=== PATIENT | female | born 1975 | race Two or more races ===

== ENCOUNTER → 2017-02-25 | Outpatient (CLI) | payer OTHER ==
[~2017-02-25] MED LIST: ANTIVERT PO; ATIVAN0.5 MG PO; FLEXERIL10 M1 PO; NAPROSYN250 M1 PO
--- NOTE | ~2017-02-25 | US98 ---
[facility] A Service of [facility] & [facility] RADIOLOGY TEXT RESULTS PATIENT: JAZMÍN ORDAZ LOCATION: [facility] : [birth year] UNIT #: [id number] AGE: [address]: Gricelda Ordaz MD SEX: F ORDER DR: [id number] [facility] [address] [place], [place] [address] [id number] O MR#: [id number] Acc #: [id number] NAME: JAZMÍN ORDAZ : 1975 SEX: F STUDY DATE/TIME: 02/25/2017 8:20 UNIT: [facility] ROOM: STUDY DESCRIPTION: US Pelvic Non-OB Complete Attending Physician: Gricelda Ordaz M.D. Referring Physician: Gricelda Ordaz M.D. Ordering Physician: Gricelda Ordaz M.D. Primary Care Physician: Gricelda Ordaz M.D. MEDICAL IMAGING REPORT This report is preliminary unless electronic signature is present EXAM Transabdominal and transvaginal pelvic ultrasound, 02/25/2017 HISTORY Suprapubic pelvic pain and left lower quadrant pain and left side pelvic pain for 2 months. History of fibroid uterus. Pain worse post menses. FINDINGS Transabdominal and transvaginal pelvic ultrasound was performed. Endovaginal ultrasound was performed for attempted better visualization of the adnexal structures. The bladder is normal in appearance. Uterus measures 10.0 cm craniocaudal x 5.1 cm AP x 5.6 cm transverse. In endometrial stripe measures 6.0 mm. The uterus is fairly heterogeneous in echotexture but no discrete fibroids are identified. The right ovary measured 1.8 cm x 3.0 cm x 2.4 cm while the left ovary measured 1.8 cm x 2.9 cm x 1.3 cm. Small follicles were seen on both ovaries. Color flow Doppler show normal blood flow to both ovaries. There is no adnexal mass. Trace free fluid was seen in the pelvis. IMPRESSION Uterus is mildly heterogeneous in echotexture but no discrete fibroids were identified. Otherwise negative transabdominal and transvaginal pelvic ultrasound. Dictated by... Roger Paulino M.D. THIS IS AN ELECTRONICALLY VERIFIED REPORT Roger Paulino M.D. at 02/26/2017 10:30 AM DEVONTE/yasemin TD: 02/25/2017 12:32 JOB #: [id number] [facility]. [facility] A Service of [facility] RADIOLOGY TEXT RESULTS PATIENT: JAZMÍN ORDAZ Naeem LOCATION: [facility] : [birth year] UNIT #: [id number] AGE: [address]: Gricelda Ordaz MD SEX: F ORDER DR: MEDICAL IMAGING REPORT Page 1 of 1 COPY
== END | disposition home or self-care (01) ==
LOC: CWCC 07:54
DX: D25.9 Leiomyoma of uterus, unspecified (principal); R10.2 Pelvic and perineal pain
CPT/HCPCS: 76830; 76856

== ENCOUNTER → 2017-06-10 | Outpatient (CLI) | payer OTHER ==
--- NOTE | ~2017-06-10 | HM ---
Unit #: [id number] #: [id number] Patient: JAZÍMN ORDAZ [id number] [address] [address] [id number] O MR#: [id number] NAME: JAZMÍN ORDAZ. : 1975 SEX: F STUDY DATE/TIME: 06/10/2017 UNIT: [facility] ROOM: STUDY DESCRIPTION: Attending Physician: Gricelda Ordaz M.D. Referring Physician: Gricelda Ordaz M.D. Primary Care Physician: Gricelda Ordaz M.D. CARDIOLOGY REPORT EXAM Holter monitor. DATE APPLIED 06/10/2017 DATE SCANNED 06/12/[address] Gricelda Ordaz READ BY Dr. Richard Winston INDICATION Palpitations. SUMMARY The patient was monitored for 24 hours. A total of 109,892 QRS complexes were analyzed. Average heart rate was 77 beats per minute, minimum heart rate was 56 beats per minute at approximately 3 a.m., and maximum heart rate 119 beats per minute at approximately 5:40 p.m. The rhythm was sinus throughout. There were no pauses. SUPRAVENTRICULAR ECTOPY: There were 24 isolated beats with no runs. VENTRICULAR ECTOPY: There were 158 isolated beats with no runs. Some of the isolated beats appear to be artifact related. SYMPTOMS: None. PATIENT ACTIVATED EVENTS: None. IMPRESSION 1. Normal Holter monitor. 2. Rare ventricular and supraventricular ectopy, all of which was asymptomatic. 1. Dictated by... Richard Winston M.D. Unit #: [id number] #: [id number] Patient: JAZMÍN ORDAZ GENARO/nelda TD: 06/12/2017 21:01 JOB #: [id number] CARDIOLOGY REPORT Page 1 of 1 X Richard Winston MD HOLTER MONITOR REPORT
== END | disposition home or self-care (01) ==
LOC: CEKG 13:03
DX: R00.2 Palpitations (principal); I49.3 Ventricular premature depolarization
CPT/HCPCS: 93225; 93226